=== PATIENT | male | born 1955 | race Caucasian/White ===

== ENCOUNTER 2016-08-12 11:33 | Day surgery (SDC) | payer OTHER ==
[~2016-08-12] VITALS: Ht 172.7 cm; Wt 146.4 kg
[~2016-08-12 11:33] MED LIST: ALDACTONE25 MG PO; ASA CHILDREN'S81 MG PO; BRILINTA90 MG PO; CENTRUM SILVER1 EAC1 PO; COREG DPS6.25 MG PO; HABITROL DPS14 MG TP; HYDROCHLOROTHIA25 MG PO; LIPITOR DPS40 MG PO; NORVASC DPS10 MG PO; OMEGA-3 DPS1000 MG PO; OSTEO BI-FLEX1 EAC1 PO; OXY IR DPS5 MG PO; PRILOSEC DPS20 MG PO; SENOKOT S1 TAB PO; TYLENOL DPS325 MG PO; TYLENOL EXTRA500 M1 PO; ULTRAM DPS50 MG PO; VASOTEC DPS5 MG PO; VISTARIL-DPS25 MG PO; XARELTO10 MG PO; ZANTAC DPS150 MG PO; ZYLOPRIM-DPS300 MG PO
--- NOTE | 2016-08-12 14:12 | HP ---
ADMIT: 08/12/2016 RM/LOC: [facility] MR#: [id number] [address] [address] [place] [address] Pre-OP History and Physical SEX: M AGE: 60 : 1955 CORRECTION: 08/12/2016 1241 REGINA DATE OF SERVICE: CHIEF COMPLAINT: Right shoulder pain. HISTORY OF PRESENT ILLNESS: The patient is a 60-year-old white male with a right shoulder pain. He was lifting and had sharp pain in the shoulder. 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 PAST MEDICAL HISTORY: Significant for history of bilateral knee replacements, high blood pressure. He also has a little heart disease. MEDICATIONS: 1. Fish oil. 2. Aspirin. 3. Tylenol. 4. Allopurinol. 5. Vasotec. 6. Brilinta. 7. Zantac. 8. Naprosyn. 9. Lipitor. 10.Aldactone. 11.Coreg. ALLERGIES: NO ALLERGIES. SOCIAL HISTORY: The patient does not smoke or regularly drink alcohol. PHYSICAL EXAMINATION: HEENT: Normocephalic and atraumatic. CV: Regular rate and rhythm. LUNGS: Benign. ABDOMEN: Benign. NEUROLOGIC: Awake and oriented x3. ADMIT: 08/12/2016 RM/LOC: [facility] MR#: [id number] [address] [place] [id number] [place] [address] Pre-OP History and Physical SEX: M AGE: 60 : 1955 MUSCULOSKELETAL: The patient can flex and abduct 10 to 180 degrees, 85 to 90 degrees of external rotation. Weakness supraspinatus, external rotators, positive impingement. ASSESSMENT AND PLAN: Right shoulder rotator cuff tear. At this point in time, we will plan right shoulder scope and subacromial decompression, distal clavicle extension, rotator cuff repair. The patient is on some blood thinners. He will see Dr. Sam to get him off that prior to surgery. Also, he has undergone some cardiac workup. The patient understands the risks and benefits of surgical intervention and desires to proceed. Abisai Hyatt MD/ cheri JOB #: [id number] CC: Abisai Hyatt MD, Attending Physician UNKNOWN, Family Physician CORRECTION: 08/12/2016 1241 REGINA
--- NOTE | 2016-08-19 13:57 | OR ---
ADMIT: 08/12/2016 RM/LOC: [facility] MR#: [id number] ACC#: [id number] [address] [address] [address] [place] [address] Operative/Delivery Room Report SEX: M AGE: 60 : 1955 SURGERY DATE: 08/12/2016 SURGEON: Abisai Hyatt MD PREOPERATIVE DIAGNOSES: Right shoulder large rotator cuff tear and AC joint degenerative joint disease. POSTOPERATIVE DIAGNOSES: Right shoulder large rotator cuff tear and AC joint degenerative joint disease with labral tearing. PROCEDURE PERFORMED: Right shoulder scope, subacromial decompression, distal clavicle excision, labral debridement, and rotator cuff repair. CHIMNEY REPAIRER: Jorge Luis Anguiano PA-C ANESTHESIA: General. ESTIMATED BLOOD LOSS: Minimal. FLUIDS: Per anesthetic record. COMPLICATIONS: No complications. DRAINS: None. CONDITION: The patient returned to the recovery room in fair condition. INDICATION: The patient has been having right shoulder pain, weakness. He had a positive MRI scan for large rotator cuff tear with some retraction. I felt the best thing given his age would be to see if we could repair this, etc. He desired to do that. He understood the risks and benefits of procedure and desired to proceed to operation. DESCRIPTION OF PROCEDURE: The patient was taken to the OR, transferred to the OR table, underwent general anesthesia, moved in the upright beach chair position. All bony prominences were well padded. The right shoulder was prepped and draped in usual sterile fashion. Posterior portal made with #11 blade. Arthroscope glenohumeral joint. The patient had a supraspinatus tendon tear extending back into the infraspinatus with some retraction. He has some superior and anterior labral tearing, anterior portal made with an #11 blade and a shaver placed through this portal, debrided the undersurface of the labrum. The biceps anchor for the most part was intact. I then placed the scope in the subacromial subdeltoid bursa, made a lateral portal with #11 blade, placed shaver in the subacromial space, resected the subacromial bursa, released to CA ligament and the AC joint capsule. I then placed the scope laterally and posteriorly, flattening the undersurface of the acromion, performed an acromioplasty. I then resected the distal 1 cm of arthritic clavicle from the posterior and anterior portals using a marie. Once this was done, several acromial debris removed using a ADMIT: 08/12/2016 RM/LOC: [facility] MR#: [id number] [address] [address] [address] [place] [address] Operative/Delivery Room Report SEX: M AGE: 60 : 1955 shaver and removed the arthroscopic equipment from the shoulder, made a 2-inch incision over the lateral shoulder through the skin and subcutaneous tissue of the skin, deltoid split in line with its fibers. I used a marie and placed a trough in the greater tuberosity. I then placed two cottony Dacron sutures in the free edge of the rotator cuff tear, brought the sutures down on the trough and up the lateral cortical bone, tied the sutures over bony bridges and we created the footprint nicely. Wounds thoroughly irrigated with bacitracin solution. The repair was reinforced using #1 Vicryl. The deltoid repaired using #1 Vicryl, subcutaneous tissue closed using 2-0 Vicryl. Skin and portals closed using casandra. Wounds were washed, dried, dressed with sterile Adaptic, 4 x 4's, ABD, Medipore tape. Drapes removed. The patient was placed in shoulder immobilizer, reversed from general anesthesia, transferred back to the recovery room in fair condition. Abisai Hyatt MD/ cheri JOB #: [id number] CC: Abisai Hyatt MD, Attending Physician Amadou Sam MD, Family Physician
--- NOTE | 2016-08-20 11:23 | CO ---
ADMIT: 08/12/2016 RM/LOC: [facility] MR#: [id number] [address] [address] [address] [place] [address] Consultation Report SEX: M AGE: 60 : 1955 DATE OF CONSULTATION: 08/06/2016 ATTENDING PHYSICIAN: Abisai Hyatt MD CONSULTING PHYSICIAN: Amadou Sam MD CHIEF COMPLAINT AND HISTORY OF THE PRESENT ILLNESS: This 60-year-old male is seen in the office for a consultation on a torn right rotator cuff, which has gotten progressively worse. Dr. Hyatt is planning on doing surgery for this and this will be done in approximately one week. PREVIOUS MEDICAL HISTORY: Generally, the patient's health has been fair. Approximately a year ago, he had a myocardial infarction and two stents were placed. Other medical problems include: 1. Gout. 2. Osteoarthritis. 3. Intrinsic asthma. 4. Morbid obesity. 5. Osteoarthritis. 6. Ischemic heart disease. 7. Hypertension. 8. History of vertigo. 9. Thoracic radiculopathy. PAST SURGICAL HISTORY: Past surgery includes cardiac catheterization. MEDICATIONS: 1. Allopurinol 300 mg daily. 2. Aspirin 81 mg daily. 3. Aldactone 25 mg one half daily. 4. Meclizine 12.5 mg t.i.d. p.r.n. 5. Coreg 6.25 mg b.i.d. 6. Lipitor 40 mg one daily. 7. Vasotec 5 mg one daily. 8. Zantac 75 mg daily. ALLERGIES: NONE. SOCIAL HISTORY: The patient has an occasional drink. He has never smoked. He is currently working full-time. FAMILY HISTORY: There is a family history of ischemic heart disease. His father had heart disease as did his mother, and his mother had a stroke. REVIEW OF SYSTEMS: HEENT: The patient does not have problems with recurring sinusitis. He does wear glasses. CARDIORESPIRATORY: The patient has had a previous myocardial infarction. He has had stent replacement. He has had no dyspnea, chest pains, or palpitations. He has been feeling good. He does have a history of smoking. ADMIT: 08/12/2016 RM/LOC: [facility] MR#: [id number] [address] [facility] [address] [place], [place] [address] [address] [place] [address] Consultation Report SEX: M AGE: 60 : 1955 He also has a history of hypertension. He has had no hemoptysis or dyspnea. GI: There has been no nausea, vomiting, constipation, bloody stools, or diarrhea. He also has had a history of GERD. : No hematuria or dysuria. METABOLIC/ENDOCRINE: No history of diabetes. He has had hypercholesterolemia. MUSCULOSKELETAL: The patient has had osteoarthritis. He has had knee replacements and also currently having the right rotator cuff done. PHYSICAL EXAMINATION: VITAL SIGNS: Weight 329 pounds. BMI is 50.02. Temperature 98.2, blood pressure 128/80, pulse 80 and regular, respirations 20. GENERAL: The patient is a markedly obese male who is alert, cooperative, and oriented x3. HEENT: Head - normocephalic without exostoses. PAT. Throat within normal limits. NECK: Neck veins not distended. Thyroid not enlarged. CHEST: Clear to percussion and auscultation. HEART: Regular rhythm with no murmur heard. No clinical evidence of cardiomegaly. ABDOMEN: Soft, nontender. Liver is not enlarged. Spleen is not palpable. No abnormal masses are palpated. Femoral pulses are strong and equal bilaterally. GENITALIA: Normal. EXTREMITIES: No cyanosis, clubbing or edema. ASSESSMENT: 1. Torn right rotator cuff. 2. Morbid obesity. 3. Ischemic heart disease with previous myocardial infarction. 4. Remote history of asthma. 5. Hypercholesterolemia. 6. Osteoarthritis. 7. History of gout. 8. Hypertension. 9. History of gastroesophageal reflux disease. PLAN: There is no contraindication to surgery. The chest x-ray shows no active disease, normal heart size. EKG shows a sinus rhythm and no acute ST changes. Amadou Sam MD/ cheri JOB #: [id number] CC: Abisai Hyatt MD, Attending Physician ADMIT: 08/12/2016 RM/LOC: [facility] MR#: [id number] [address] [address] [address] [facility] [place] [address] Consultation Report SEX: M AGE: 60 : 1955 UNKNOWN, Family Physician
== END 2016-08-12 18:50 | disposition home or self-care (01) ==
LOC: SSS 11:33
DX: M75.101 Unspecified rotator cuff tear or rupture of right shoulder, not specified as traumatic (principal); I25.2 Old myocardial infarction; G47.30 Sleep apnea, unspecified; Z99.81 Dependence on supplemental oxygen; I10 Essential (primary) hypertension; E66.9 Obesity, unspecified; M19.011 Primary osteoarthritis, right shoulder; Z96.651 Presence of right artificial knee joint; Z79.899 Other long term (current) drug therapy; Z79.82 Long term (current) use of aspirin